=== PATIENT | female | born 1985 | race Caucasian/White ===

== ENCOUNTER 2021-02-03 11:12 | Emergency (ER) | payer OTHER ==
[~2021-02-03 11:12] MED LIST: GIANVI 3 MG-0.1 EACH PO; IBUPROFEN600 MG PO; NORCO 5-325 TA1 EACH PO; OMEPRAZOLE20 MG PO; PROBIOTIC1 EAC3 PO; SYNTHROID100 MCG PO
[2021-02-03] MEDS ORDERED: CLINDAMYCIN HC300 MG PO (12:28)
[2021-02-03] MEDS ORDERED: HYDROCODON-ACE1 EAC4 PO (12:29)
== END 2021-02-03 14:46 | disposition home or self-care (01) ==
LOC: ER1 11:12
DX: R68.84 Jaw pain (principal); K13.79 Other lesions of oral mucosa; E03.9 Hypothyroidism, unspecified; I10 Essential (primary) hypertension; E78.5 Hyperlipidemia, unspecified; Z90.49 Acquired absence of other specified parts of digestive tract; F17.200 Nicotine dependence, unspecified, uncomplicated; Z88.8 Allergy status to other drugs, medicaments and biological substances
CPT/HCPCS: 99283